=== PATIENT | female | born 1975 | race Caucasian/White ===

== ENCOUNTER 2022-02-09 08:11 | Emergency (ER) | payer MEDICAID ==
[~2022-02-09] VITALS: Ht 162.6 cm; Wt 79.4 kg
--- NOTE | 2022-02-09 08:15 | NUR ---
pt brought in by law enforcement for medical clearance. Okay to book form given and has been completed. Pt is A&Ox4. Ambulatory with steady gait. NKA. has hx of thyroid disease and sciatica. BP at 117/[address] Slater made aware, all other vitals stable.
--- NOTE | 2022-02-09 08:15 | NUR ---
BIB Officer in custody for medical clearance. Patient to ER [address] [address] to [facility] for evaluation.
[2022-02-09 08:18] VITALS: BP_SYST 177
--- NOTE | 2022-02-09 08:20 | NUR ---
ER at bedside examining patient.
[2022-02-09 08:26] VITALS: BP_SYST 158
--- NOTE | 2022-02-09 08:26 | NUR ---
Patient given written and verbal discharge instructions and verbalizes understanding. ER MD discussed with patient the results and treatment provided. Patient in stable condition. ID arm band removed. Rx given. Patient educated on pain management and to follow up with PMD. Pain Scale 0/10. Opportunity for questions provided and answered. Medication side effect fact sheet provided.
== END 2022-02-09 08:26 | disposition home or self-care (01) ==
LOC: SED 08:11
DX: M54.9 Dorsalgia, unspecified (principal)
CPT/HCPCS: 99283